=== PATIENT | female | born 1960 | race American Indian/Alaskan Native ===

== ENCOUNTER 2018-12-23 12:53 | Emergency (ER) | payer MEDICARE, MEDICAID, OTHER ==
[~2018-12-23] VITALS: Ht 167.6 cm; Wt 95.4 kg
[~2018-12-23 12:53] MED LIST: CLINDAMYCIN HC300 MG PO; CLOTRIMAZOLE15 GM TOP; ENBREL50 MG/1 M1 SUB-Q; FLECTOR1 EACH TP; FOLIC ACID1 MG PO; KEFLEX500 MG PO; METHOTREXA25 MG/1 ML INJ; METHOTREXA25 MG/1 ML PO; NORCO 5-325 TA1 EACH PO; TRAMADOL HCL50 MG PO; VITAMIN D-32000 UNI1 PO; ZESTRIL20 MG PO; [UNRECOGNIZED DRUG - OTHER] TOP
--- NOTE | 2018-12-24 11:26 | EKG ---
[facility] [address] [place] [address] Signed Sinus tachycardia Otherwise normal ECG No previous ECGs available Confirmed by SANDRA SOUTH MD ([id number]) on 12/24/2018 11:26:08 AM Electronically Signed By: SANDRA SOUTH MD 12/24/18 1126 PATIENT NAME: MINERVA JIMÉNEZ Electrocardiogram DATE OF : 56 PHYSICIAN: SANDRA SOUTH MD REPORT #: [id number] REPORT IS CONFIDENTIAL AND NOT TO BE RELEASED WITHOUT AUTHORIZATION
== END 2018-12-23 15:18 | disposition home or self-care (01) ==
LOC: ED 12:53
DX: R00.2 Palpitations (principal); Z88.5 Allergy status to narcotic agent; Z88.8 Allergy status to other drugs, medicaments and biological substances; Z79.899 Other long term (current) drug therapy
CPT/HCPCS: 71045; 80053; 83735; 84443; 84484; 85025; 93005; 93010; 96360; 99285-25; J7030

== ENCOUNTER 2019-09-26 16:31 | Observation (INO) | payer MEDICARE, OTHER, MEDICAID ==
[~2019-09-26] VITALS: Ht 167.6 cm; Wt 73.6 kg
[2019-09-26] MEDS ORDERED: LACTULOSE10 GM/15 M PO (17:40)
[2019-09-26] MEDS ORDERED: SYNTHROID25 MCG PO (17:42)
--- NOTE | 2019-09-26 22:00 | NUR ---
DISCUSSED WITH DR HANEY AT RN STATION PT'S POC. DR HANEY NOT YET MADE AWARE OF PT'S TRENDING TEMPERATURE. VERBAL ORDERS READ BACK TO INITIATE "BEAR HUGGER WITH PASSIVE WARMING" AND OKAY TO WARM IV FLUIDS. PAYMENT SPECIALIST MADE AWARE AND TRACKING DOWN WARMING MACHINE. WARMED IV FLUID BOLUS INFUSING (SEE EMAR) AT 200MLS/HR.
--- NOTE | 2019-09-26 22:40 | NUR ---
IN ROOM COMPLETING ADMISSION HX. PT IS RESTING IN BED WITH EYES OPEN BUT IS NOT ABLE TO ANSWER QUESTION. SHE HAS MULTIPLE WARM BLANKETS ON AND WE ARE GETTING A BEAR HUGGER PER DR HANEY'S VERBAL ORDER ALONG WITH WARMED IV FLUIDS. BED ALARM IS ON.
--- NOTE | 2019-09-26 22:56 | NUR ---
MED PUSH MADE FOR THIAMINE AND THYROID MEDICATION TO WELDER/INSTALLER OFFICE. WELDER/INSTALLER MADE AWARE.
--- NOTE | 2019-09-26 23:00 | NUR ---
ASSESSMENT COMPLETE, SPB TRENDING IN 90'S WILL MONITOR. BOLUS INFUSING, SITE WNL. PT NONVERBAL, WILL OPEN EYES. DOES NOT FOLLOW COMMANDS. INCONTINENT OF LIQUID BM, WILLIAMS CARE DONE. PT REPORITIONED WITH HELP FROM MARTHA ARANDA. VERENAICE IN COLOR. 2 SMALL SUPERFICIAL LIKE WOUNDS TO LEFT BUTTOCKS. OPEN TO AIR, CLEANING AND ALLEVYN PLACED BY REGISTRATION REP. ALLEVYN ALREADY IN PLACE TO RIGHT BUTTOCKS.
--- NOTE | 2019-09-26 23:30 | NUR ---
CCU MARTHA GARCIA IN ROOM HELPING WITH SET UP OF MEDI THERM III GAYMAR WARMING MACHINE. MACHINE IN PLACE, MANUAL SETUP. UNABLE TO DO AUTO WE DO NOT HAVE ADAPTER PIECE FOR HERNNÁDEZ PROBE PER MARTHA GARCIA. WILL MONITOR RECTALLY AND SWITCH IF ADAPTER BECOMES AVAILABLE. SEPERATED WITH BLANKET FOR SKIN PROTECTION, SET POINT 98.6. MATERIAL EXPEDITORMARTHA ARANDA ALSO IN ROOM AND ASSISTING WITH SET UP. HOB ELEVATED FOR ASPIRATION PRECAUTIONS.
--- NOTE | 2019-09-26 23:48 | NUR ---
GRINDING AND SPRAYING SUPERVISOR AT RN [facility]ATION WITH SCHEDULED 2200 MEDS.
--- NOTE | 2019-09-27 00:30 | NUR ---
scheduled meds given (see emar). per dr felice wynn to wait on 2200 scheduled lactulose "a few hours". will prepare lactulose now.
--- NOTE | 2019-09-27 00:41 | NUR ---
VITALS DONE AND CHARTED.
--- NOTE | 2019-09-27 01:00 | NUR ---
SCHEDULED LACTULOSE GIVEN (SEE EMAR). LIQUID BM NOTED ALREADY IN ATTENDS ALONG WITH MED ADMINISTRATION. RECTAL TEMP OF [address] HANEY MADE AWARE, PER LYNDON, OKAY TO CONTINUE WARMING PT SLOWLY TO NORMAL BODY TEMP. WILL MONITOR. BED LINEN CHANGE COMPLETE, GAYMAR IN PLACE AND WORKING APPROPERIATELY.
--- NOTE | 2019-09-27 02:28 | NUR ---
WITH THE HELP OF RN'S BRIANA AND MANOJ WE GOT PATIENT CLEANED UP FROM A BM. DID A COMPLETE BED CHANGE. I DID A BLOOD SUGAR AND CHARTED IT. BEDSIDE TABLE AND CALL LIGHT IN REACH.
--- NOTE | 2019-09-27 07:00 | NUR ---
unable to do oral care on pt as pt did not follow commands and open mouth.
--- NOTE | 2019-09-27 07:15 | NUR ---
Spoke with pt's sister Kit. Pt is somulent and does not respond to voice. Sister states she is 1 of 7 girls. Sisters are traveling to [place]. Pt has had alcohol abuse for some time and has stopped taking her Lactulose. Pt has been declining for 2 weeks and was unable to walk. Tuesday she has stopped talking. Gave sister options of Hospice and Comfort care at SNF. She states she will need to speak with her sister's who will arrive today.
--- NOTE | 2019-09-27 07:27 | NUR ---
dr viveros made aware of most recent rectal temp and uo for total of shift. no new orders.
[2019-09-27] MEDS ORDERED: CHILDREN'S MUL1 EA10 PO (09:41)
[2019-09-27] MEDS ORDERED: VOLTAREN100 GM TOP (09:41)
[2019-09-27] MEDS ORDERED: FOLIC ACID1 MG PO (09:44)
--- NOTE | 2019-09-27 09:44 | NUR ---
Venus from [facility] called and update given.
[2019-09-27] MEDS ORDERED: CLARITIN10 MG PO (10:04)
--- NOTE | 2019-09-27 10:05 | NUR ---
MED REC COMPLETED
--- NOTE | 2019-09-27 10:26 | NUR ---
LACTULOSE ENEMA GIVEN, PT ONLY ABLE TO HOLD FOR A SHORT TIME, ENEMA GIVEN SLOWLY OVER 5 MIN. MED DARK BROWN LOOSE STOOL, GOOD SKIN CARE GIVEN ORAL CARE AND REPOSITIONED FOR COMFORT, HERNÁNDEZ PATENT WITH DARK REBEKA URINE, POOR URINE OUTPUT, SKIN IS JAUNDICED,DRY, PATIENT OPENS EYES BUT MAKES NO ATTEMPTS TO FOLLOW INSTRUCTION. SISTER IN ROOM, DENIES ANY NEEDS.
--- NOTE | 2019-09-27 14:00 | NUR ---
Update from Dr. Ashby. He had a meeting at the bedside with family. They have not made any decisions at this time.
--- NOTE | 2019-09-27 14:11 | NUR ---
PT TURNED AND REPOSITIONED Q 2HRS, OPENS EYES BUT NO ATTEMPTS TO COMMUNICATE, REMAINS NPO, IVF PATENT, INC OF STOOL, HERNÁNDEZ PATENT WITH DARK REBEKA URINE, DR HANEY SPOKE WITH FAMILY MEMBERS, AWARE OF LOW URINE OUTPUT AND COGNITION. SKIN ULCERS ON BUTTOCKS DOCUMENTED.
--- NOTE | 2019-09-27 18:00 | NUR ---
VS NOTED, BEAR HUGGAR REPLACED FOR LOW BODY TEMP NOT RESPONDING TO WARM BLANKETS, LR BOLUS IS INFUSING, SPOKE WITH DR HANEY, 4 FAMILY MEMBERS ESCORTED TO ROOM, DR HANEY WILL BE IN TO SPEAK WITH THEM.
--- NOTE | 2019-09-27 18:05 | EKG ---
[facility] [address] [place] [address] Signed Normal sinus rhythm Prolonged QT Abnormal ECG When compared with ECG of 23-DEC-2018 13:00, Nonspecific T wave abnormality now evident in Anterior leads QT has lengthened Confirmed by BLAYNE HANEY DO ([id number]) on 09/27/2019 6:05:10 PM Electronically Signed By: BLAYNE HANYE DO 09/27/19 1805 PATIENT NAME: MINERVA JIMÉNEZ Electrocardiogram DATE OF : 56 PHYSICIAN: BLAYNE HANEY DO REPORT #: [id number] REPORT IS CONFIDENTIAL AND NOT TO BE RELEASED WITHOUT AUTHORIZATION
--- NOTE | 2019-09-27 18:06 | NUR ---
In and spoke with one of Hannah's older sisters. She states they have not made any decisions. Again gave options of treatment, comfort care at the long term, or Hospice at home. She states the family are all waiting outside. Asked if she would like me to go and speak with them. She declines at this time as she feels they aren't ready to make a decision. Spoke with nurses and updated. They state multiple family members are attempting to visit at the same time and are not wearing masks.
--- NOTE | 2019-09-27 20:55 | NUR ---
turned, no response, chayne peterson breathing, was incontinent of stool, skin care done, open areas in buttocks, and l heel noted. Barrier cream to area f/c care done, very scant amount of light giuliana urine in f/c present. sl r arm in place, on room air, bear hugger in place, moth care done, bited down on sponge. NPO, HOB elevated legs elevated. Family in room, pt on comfort measures. bruising r arm.
--- NOTE | 2019-09-27 21:05 | NUR ---
WITH THE HELP OF RN OBED AND MANUELA REYES WE GOT PT CLEANED UP FROM A BM . REPOSITIONED PT IN BED. GARBAGES EMPTIED AND ROOM CLEANED UP. FAMILY IN ROOM WHEN WE LEFT.
--- NOTE | 2019-09-27 23:40 | NUR ---
CONTINUES ON COMFORT MEASURES, RESP EVEN, UNLABORED, CALM, ON ROOMA AIR.F/C PATENT, DRAINING SMALL AMOUNTS OF LIGHT REBEKA URINE. TURNED. FAMILY IN ROOM
--- NOTE | 2019-09-28 01:53 | NUR ---
Turned, calm, no moaning or distress noted, on room air, bear hugger in place, f/c patent with small amount of urine. attends dry. Family in room.
--- NOTE | 2019-09-28 05:23 | NUR ---
WITH THE HELP OF RN OBED WE CHANGED PT'S ATTEND SOILED WITH A SMALL BM. REPOSITIONED PT IN BED. 1 FAMILY MEMBER IN THE ROOM WHEN I LEFT.
--- NOTE | 2019-09-28 05:32 | NUR ---
pt unresponsice, turned q2h, mouth care done. rattle sound present. f/c with scant amount of dark giuliana colored urine. Has been incontinent of small amounts of dark colored stool. skin care done, f/c care done. open areas in buttocks present. mottled leg present, bruising over L arm and upper hips present. On comfort care. Family in room NPO
--- NOTE | 2019-09-28 06:28 | NUR ---
pt resp rate 38 with gurgling breath sounds. medicated with morphine per mar for comfort. discussed with dedrick bedside rn.
--- NOTE | 2019-09-28 07:18 | NUR ---
received report from dedrick ordonez. pt has family in room and appears to resting comfortably. discussed with the family that it will kind of be up to them if they want us to turn her and medicate her. family understanding, educated them on what distress could look like
--- NOTE | 2019-09-28 09:12 | NUR ---
DR. HANEY IN PTS ROOM. PT HAS PASSES AT THIS TIME. PTS TWO SISTERS IN ROOM.
--- NOTE | 2019-09-28 09:58 | NUR ---
Pt passed at 0910 per security team lead report. Donor referral line called per policy. Spoke with Livier, confirmation # is [id number]. Livier states pt is potential eye and tissue donor. Requested H&P, facesheet, 3 most recent progress notes, and labs or cultures from this visit. Faxed to [phone] attn Livier. Per auto clocks repairer Anjum, family in room is unsure if pt wanted donation. Waiting for her brother to arrive to make the decision on donation and home.
--- NOTE | 2019-09-28 12:48 | NUR ---
I WAS NOTIFIED BY RN OZIEL BLACKWELL THAT PT HAS PASSED.ENTERED RM, A NUMBER OF PTS' FAMILY GATHERED IN RM. GAVE COMFORT AND CONDOLENCES, FAMILY PRESENT ASKED TO WAIT FOR BRO TO ARRIVE BEFORE FINAL ARRANGEMENTS ARE MADE. STAFF MADE SURE HOSPITALITY TRAY IS REFRESHED. AFTER PTS' BRO ARRIVED I ENTERED RM AND FAMILY WERE LAUGHING AND REMEMBERING PT-GOOD HEALING MOMENT. [employer] WILL DO ARRANGEMENTS, WITH CREMATION. CONTACTED [employer], THEY ARRIVED AND FAMILY WENT WITH BODY TO VEHICLE. PAPERWORK PLACED IN PTS' CHART.
== END 2019-09-28 12:37 ==
LOC: ED 16:31 → MS 16:32
PROVIDERS: ADMIT Student in an Organized Health Care Education/Training Program
DX: K72.00 Acute and subacute hepatic failure without coma (principal); K70.30 Alcoholic cirrhosis of liver without ascites; E87.2 Acidosis; K82.8 Other specified diseases of gallbladder; M06.9 Rheumatoid arthritis, unspecified; Z88.5 Allergy status to narcotic agent; Z88.8 Allergy status to other drugs, medicaments and biological substances
CPT/HCPCS: 36415; 51702; 70450; 71045; 72125; 74176; 80053; 81001; 82140; 82390; 82728; 83735; 84439; 84443; 84484; 85025; 85610; 85730; 86255; 86850; 86900; 86901; 86920; 93005; 93010; 96361; 96365; 96375; 96376; 99291; C9803; G0378; J2270; J3411; J7030; J7121; U0002